=== PATIENT | male | born 1975 | race American Indian/Alaskan Native ===

== ENCOUNTER 2022-09-09 13:44 | Emergency (ER) | payer MEDICAID ==
[2022-09-09] MEDS ORDERED: Acetaminophen/oxyCODONE 325-5 MG Tab PO ONE (17:17)
[2022-09-09] MEDS ORDERED: Ondansetron 4 MG Tab.DIS PO ONE (17:18)
[2022-09-09] MEDS ORDERED: Ondansetron 4 MG Tab.DIS ONE (17:38)
== END 2022-09-09 18:47 | disposition home or self-care (01) ==
LOC: EDSEX → JD.ED 13:44 → MERGE 13:44 → JD.ED 18:47
DX: S82.852A Displaced trimalleolar fracture of left lower leg, initial encounter for closed fracture (principal); S82.832A Other fracture of upper and lower end of left fibula, initial encounter for closed fracture; E78.00 Pure hypercholesterolemia, unspecified; I10 Essential (primary) hypertension; E11.9 Type 2 diabetes mellitus without complications; F17.210 Nicotine dependence, cigarettes, uncomplicated; E66.9 Obesity, unspecified; Z68.33 Body mass index [BMI] 33.0-33.9, adult; X50.1XXA Overexertion from prolonged static or awkward postures, initial encounter
CPT/HCPCS: 29515; 73610; 99283; A9270